=== PATIENT | male | born 2000 | race Caucasian/White ===

== ENCOUNTER 2023-07-25 11:31 | Emergency (ER) | payer SELFPAY ==
[2023-07-25] MEDS ORDERED: Ondansetron 4 MG Tab.DIS PO ONE (12:01)
[2023-07-25] MEDS ORDERED: Acetaminophen 500 MG Tab PO ONE (12:01)
[2023-07-25 13:05] LABS: CORONAVIRUS COVID-19 NAA NEGATIVE (NEGATIVE); INFLUENZA A NAA NEGATIVE (NEGATIVE); INFLUENZA B NAA POSITIVE (NEGATIVE)
== END 2023-07-25 13:30 | disposition home or self-care (01) ==
LOC: MW.ED 11:31
DX: J10.1 Influenza due to other identified influenza virus with other respiratory manifestations (principal); F17.210 Nicotine dependence, cigarettes, uncomplicated
CPT/HCPCS: 0240U; 87651; 99283; A9270